=== PATIENT | female | born 1985 | race Caucasian/White ===

== ENCOUNTER 2018-02-11 13:39 | Inpatient (IN) | payer MEDICAID ==
[2018-02-11] MEDS ORDERED: MISOPROSTOL 200 MCG TAB PR ×2 (14:30→19:30)
[2018-02-11] MEDS ORDERED: OXYTOCIN 30 UNITS/LR 500 ML IV ×4 (14:30→19:30)
[2018-02-11] MEDS ORDERED: CARBOPROST 250 MCG INJ IM ×2 (14:30→19:30)
[2018-02-11] MEDS ORDERED: METHYLERGONOVINE 0.2 MG INJ IM ×2 (14:30→19:30)
[2018-02-11] MEDS ORDERED: CEFAZOLIN 2 GM/50 ML (PMX) 50 ML IVPB (14:30)
[2018-02-11] MEDS: LACTATED RINGER'S 1,000 ML IV ×2 (14:33→17:56)
[2018-02-11 15:22] LABS: ADD MAN DIFF? NO
[2018-02-11 15:23] LABS: WHITE BLOOD COUNT 9.2 10^3/ul (4.8-10.8)
[2018-02-11 15:23] LABS: BASOPHIL # 0.1 10^3/ul (0.0-0.1); BASOPHILS % 0.7 % (0.0-2.0); EOSINOPHILS # 0.3 10^3/ul (0.0-0.5); EOSINOPHILS % 3.3 % (0.0-7.0); HEMATOCRIT 40.8 % (37.0-47.0); HEMOGLOBIN 13.8 g/dl (12.0-16.0); LYMPHOCYTES # 2.6 10^3/ul (0.8-2.9); LYMPHOCYTES % 28.5 % (15.0-51.0); MEAN CORPUSCULAR HEMOGLOBIN 32.8 pg (29.0-33.0); MEAN CORPUSCULAR HGB CONC 33.8 g/dl (32.0-37.0); MEAN CORPUSCULAR VOLUME 96.9 fl (82.0-101.0); MEAN PLATELET VOLUME 11.7 fl (7.4-10.4); MONOCYTE # 0.6 10^3/ul (0.3-0.9); MONOCYTES % 6.6 % (0.0-11.0); NEUTROPHIL # 5.5 10^3/ul (1.6-7.5); NEUTROPHILS % 60.2 % (39.0-77.0); PLATELET COUNT 266 10^3/UL (140-415); RED BLOOD COUNT 4.21 10^6/ul (4.20-5.40); RED CELL DISTRIBUTION WIDTH 13.7 % (11.5-14.5)
[2018-02-11 15:50] LABS: PROTIME 12.2 Sec (11.9-14.9)
[2018-02-11 15:51] LABS: PARTIAL THROMBOPLASTIN TIME 27.5 Sec (23.0-35.0)
[2018-02-11 16:05] LABS: RUPTURE FETAL MEMBRANES NEGATIVE (NEGATIVE)
[2018-02-11] MEDS: CITRIC ACID/NA CITRATE 30 ML CUP PO (17:56)
[2018-02-11] MEDS ORDERED: KETOROLAC 30 MG INJ (18:23)
[2018-02-11] MEDS ORDERED: ONDANSETRON 4 MG INJ (18:23)
[2018-02-11] MEDS ORDERED: morphine SULFATE/PF (10 MG/10 ML) INJ (18:23)
[2018-02-11] MEDS ORDERED: METOCLOPRAMIDE 10 MG INJ (18:23)
[2018-02-11] MEDS ORDERED: PHENYLephrine (100 MCG/ML) 5ML SYG (18:46)
[2018-02-11] MEDS ORDERED: LANOLIN HPA 1 PKT TOP (19:30)
[2018-02-11] MEDS ORDERED: NACL 0.9% 3 ML SYG IV (19:30)
[2018-02-11] MEDS ORDERED: KETOROLAC 30 MG INJ IV (20:00)
[2018-02-11] MEDS ORDERED: morphine 2 MG INJ IV ×3 (20:00)
[2018-02-11] MEDS ORDERED: NALOXONE (0.4 MG/ML) INJ IV (20:00)
[2018-02-11] MEDS ORDERED: DIPHENHYDRAMINE 50 MG INJ IV (20:00)
[2018-02-11] MEDS ORDERED: morphine (1 MG/ML) 10ML SYRINGE IV ×3 (20:00)
[2018-02-11] MEDS ORDERED: ONDANSETRON 4 MG INJ IV (20:00)
[2018-02-11] MEDS: SENNA/DOCUSATE NA (8.6MG/50MG) TAB PO (21:00)
[2018-02-11 22:27] LABS: RAPID PLASMA REAGIN NONREACTIVE (NR)
[2018-02-11] MEDS: OXYTOCIN 30 UNITS/LR 500 ML IV (23:09)
[2018-02-12] MEDS: CEFAZOLIN 2 GM/50 ML (PMX) 50 ML IVPB ×4 (03:14→18:49)
[2018-02-12] MEDS: ONDANSETRON 4 MG INJ IV (04:26)
[2018-02-12] MEDS: LACTATED RINGER'S 1,000 ML IV ×2 (07:30→10:19)
[2018-02-12 08:59] LABS: ADD MAN DIFF? NO
[2018-02-12 09:06] LABS: BASOPHILS % 0.3 % (0.0-2.0); EOSINOPHILS % 0.1 % (0.0-7.0); HEMATOCRIT 38.3 % (37.0-47.0); HEMOGLOBIN 12.8 g/dl (12.0-16.0); LYMPHOCYTES # 1.7 10^3/ul (0.8-2.9); LYMPHOCYTES % 12.4 % (15.0-51.0); MEAN CORPUSCULAR HEMOGLOBIN 32.9 pg (29.0-33.0); MEAN CORPUSCULAR HGB CONC 33.4 g/dl (32.0-37.0); MEAN CORPUSCULAR VOLUME 98.5 fl (82.0-101.0); MONOCYTE # 0.8 10^3/ul (0.3-0.9); MONOCYTES % 5.8 % (0.0-11.0); NEUTROPHIL # 10.9 10^3/ul (1.6-7.5); NEUTROPHILS % 81.1 % (39.0-77.0); PLATELET COUNT 239 10^3/UL (140-415); RED BLOOD COUNT 3.89 10^6/ul (4.20-5.40); RED CELL DISTRIBUTION WIDTH 13.8 % (11.5-14.5)
[2018-02-12 09:06] LABS: WHITE BLOOD COUNT 13.4 10^3/ul (4.8-10.8)
[2018-02-12] MEDS: SENNA/DOCUSATE NA (8.6MG/50MG) TAB PO ×2 (09:58→21:04)
[2018-02-12] MEDS: DIPHENHYDRAMINE 50 MG INJ IV (11:04)
[2018-02-12] MEDS: KETOROLAC 30 MG INJ IV (12:57)
[2018-02-12] MEDS: IBUPROFEN 600 MG TAB PO ×2 (18:01→23:29)
[2018-02-13] MEDS: OXYCODONE/ACETAMINOPHEN (5/325) TAB PO ×4 (01:47→20:05)
[2018-02-13] MEDS: IBUPROFEN 600 MG TAB PO ×3 (05:34→17:14)
[2018-02-13] MEDS: SENNA/DOCUSATE NA (8.6MG/50MG) TAB PO (09:01)
[2018-02-14] MEDS: IBUPROFEN 600 MG TAB PO ×3 (00:05→11:25)
[2018-02-14] MEDS: SENNA/DOCUSATE NA (8.6MG/50MG) TAB PO ×2 (00:05→09:15)
[2018-02-14] MEDS: OXYCODONE/ACETAMINOPHEN (5/325) TAB PO ×2 (02:17→09:16)
== END 2018-02-14 12:53 | disposition home or self-care (01) | DRG 785 ==
LOC: OBT 13:39 → L-D 13:39 → OBT 14:24 → L-D 14:00 → PP1 22:10
PROVIDERS: Obstetrics & Gynecology
PROC: 10D00Z1 Extraction of Products of Conception, Low, Open Approach (ICD-10-PCS; principal; 2018-02-11 18:45)
PROC: 0UL70ZZ Occlusion of Bilateral Fallopian Tubes, Open Approach (ICD-10-PCS; 2018-02-11 18:45)
DX: O34.211 Maternal care for low transverse scar from previous cesarean delivery (principal); Z30.2 Encounter for sterilization; Z3A.38 38 weeks gestation of pregnancy; Z37.0 Single live birth
CPT/HCPCS: 84112; 85025; 85610; 85730; 86592; 86850; 86900; 86901; 88302; 99464